=== PATIENT | male | born 1965 | race Caucasian/White ===

== ENCOUNTER 2021-06-17 15:02 | Emergency (ER) | payer MEDICAID ==
[~2021-06-17] VITALS: Ht 188 cm; Wt 90.7 kg
[2021-06-17 15:49] LABS: HEMATOCRIT 34.5 % (36.7-47.1); MEAN CORPUSCULAR HEMOGLOBIN 28.4 uug (23.8-33.4); MEAN CORPUSCULAR VOLUME 85.6 fL (73.0-96.2); PLATELET COUNT (AUTO) 110 K/uL (152-348)
[2021-06-17 15:58] LABS: CARBON DIOXIDE 28 mmol/L (21-32); CHLORIDE 103 mmol/L (98-107); CREATININE 0.9 mg/dL (0.6-1.3); GLUCOSE 114 mg/dL (74-106); POTASSIUM 3.6 mmol/L (3.5-5.1); UREA NITROGEN, BLOOD 8 mg/dL (7-18)
[2021-06-17 16:04] LABS: ETHANOL 421 MG/DL (0-0)
[2021-06-17 16:11] LABS: ACETAMINOPHEN < 2.0 ug/mL (10-30); ALANINE AMINOTRANSFERASE 35 U/L (16-63); ALKALINE PHOSPHATASE 166 U/L (50-136); ASPARTATE AMINOTRANSFERASE 36 U/L (15-37); BILIRUBIN,DIRECT 1.3 mg/dL (0.0-0.2); BILIRUBIN,TOTAL 2.5 mg/dL (0.2-1.0); TOTAL PROTEIN, SERUM 6.9 g/dL (6.4-8.2)
--- NOTE | 2021-06-17 17:04 | NUR ---
PT IN ROOM.
--- NOTE | 2021-06-17 21:20 | NUR ---
Patient in bed asleep, no acute distress noted. Security sitting at bedside.
--- NOTE | 2021-06-18 00:20 | NUR ---
Called crisis team, JOHANA Del Valle; states she will come to evaluate patient.
--- NOTE | 2021-06-18 00:49 | NUR ---
Patient was able to transfer self out of bed without any imbalances, and was able to ambulate with a steady gait. Speech is clear, and speaks in complete sentences.
--- NOTE | 2021-06-18 01:59 | NUR ---
Ivon from crisis team is here to evaluate patient.
[2021-06-18] MEDS ORDERED: OLANZAPINE 5 MG TABLET PO ONE (02:15)
[2021-06-18] MEDS ORDERED: OLANZAPINE 5 MG TABLET ONE (02:22)
--- NOTE | 2021-06-18 03:35 | NUR ---
[facility] returned call stating that they can accept the patient to their inpatient psychiatric floor. They are requesting PCR prior to departure. Order placed for PCR and swab was collected.
--- NOTE | 2021-06-18 06:00 | NUR ---
Patient remains asleep, respirations even and unlabored. No signs of acute distress noted at this time. Will continue to monitor.
--- NOTE | 2021-06-18 06:00 | NUR ---
Security remains at bedside to sit for the patient. Patient is in direct line of sight of security, and is being observed.
--- NOTE | 2021-06-18 07:34 | NUR ---
PT IS IN ROOM #2A. SITTER AT THE BEDSIDE. NO S/S OF ACUTE DISTRESS AT THIS TIME. CONTINUE TO MONITOR THE PT.
--- NOTE | 2021-06-18 09:19 | NUR ---
Clinical Social Work Note AMANDA spoke with Hillary at [facility] [place] ([phone]) to confirm they can accept patient. Hillary stated that she has informed her charge nurse and once they have the bed available she will call back to coordinate knot picker cloth.
--- NOTE | 2021-06-18 11:24 | NUR ---
[facility] IS ACCEPTING THE PT ACCORDING TO THEIR REPRESENTATIVES CIRO AND TATYANA. ) DR FRAIRE IS ACCEPTING MD. PT IS GOING TO BE TRANSFERED TO [facility] , [facility], ROOM #100D VIA BLS AMBULANCE. MARIUM IS 1 HOUR.
--- NOTE | 2021-06-18 12:27 | NUR ---
PT WAS TRANSFERED TO [facility] [place] [place], ROOM # 100D, VIA BLS AMBULANCE. REPORT WAS GIVEN TO [facility] SAEID CALDERA. REPORT WAS GIVEN TO AMBULANCE EMT.
== END 2021-06-18 12:33 ==
LOC: ER 15:02
DX: R45.851 Suicidal ideations (principal); F10.229 Alcohol dependence with intoxication, unspecified; Y90.8 Blood alcohol level of 240 mg/100 ml or more; K70.9 Alcoholic liver disease, unspecified; D64.9 Anemia, unspecified; D69.6 Thrombocytopenia, unspecified; F32.9 Major depressive disorder, single episode, unspecified; Z20.822 Contact with and (suspected) exposure to COVID-19
CPT/HCPCS: 80048; 80076; 80299; 80307; 80320; 85025; 87426; 99285; U0003; 36415; A4663; G0480